=== PATIENT | female | born 1970 | race Caucasian/White ===

== ENCOUNTER 2016-10-05 13:48 | Outpatient (CLI) | payer MEDICAID, MEDICARE | END 2016-10-05 13:49 | disposition critical access hospital (66) | LOC: EMS 13:48 | PROVIDERS: ATTEND Surgery | DX: R45.851 Suicidal ideations (principal); X78.0XXA Intentional self-harm by sharp glass, initial encounter; Y92.018 Other place in single-family (private) house as the place of occurrence of the external cause | CPT/HCPCS: A0425; A0429 ==

== ENCOUNTER 2016-10-05 13:56 | Emergency (ER) | payer MEDICARE, MEDICAID ==
[2016-10-05] MEDS ORDERED: TETANUS/DIPHTHERIA/PERTUSSIS 0.5 ML SYRINGE IM ONE ×2 (15:16→15:20)
--- NOTE | 2016-10-05 15:18 | ED Physician Documentation ---
PD HPI MHE - Stated complaint Stated Complaint: SI - Chief complaint Chief Complaint: MHE - History obtained from History obtained from: Patient - History of Present Illness Primary symptom: Other (Brought in by ambulance, the patient's a difficult historian due to to psychosis/tangential. She was brought in by ambulance for evidently odd behavior. 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 - Allergies Allergies/Adverse Reactions: Allergies Allergy/AdvReac Type Severity Reaction Status Date / Time No Known Drug Allergies Allergy Verified 10/05/16 14:11 - Social History Does the pt smoke?: Yes Smoking Status: Current every day smoker Does the pt drink ETOH?: Yes Does the pt have substance abuse?: Yes PD ED PE NORMAL - Vitals Vital signs reviewed: Yes - General General: Alert and oriented X 3, No acute distress - HEENT HEENT: PERRL, EOMI - Neck Neck: Supple, no meningeal sign, No bony TTP, No bruit - Cardiac Cardiac: RRR, No murmur - Respiratory Respiratory: No respiratory distress, Clear bilaterally - Abdomen Abdomen: Soft, Non tender - Derm Derm: Normal color, Warm and dry - Extremities Extremities: No edema, No calf tenderness / cord - Neuro Neuro: Alert and oriented X 3, Normal speech - Psych Psych: Other (Significant flight of ideas, and admits to islam persecution, paranoia, delusions, auditory hallucinations.) Results - Vitals Vitals: Vital Signs - 24 hr 10/05/16 14:08 Temperature 36.5 C Heart Rate 87 Respiratory 18 Rate Blood Pressure 104/73 O2 Saturation 100 Oxygen O2 Source Room air - Labs Labs: Laboratory Tests 10/05/16 10/05/16 10/05/16 14:10 14:10 14:49 WBC RBC Hgb Hct MCV MCH MCHC RDW Plt Count MPV Neut # Lymph # [place] # Eos # Baso # Absolute Nucleated RBC Nucleated RBCs Sodium Potassium Chloride Carbon Dioxide Anion Gap BUN Creatinine Estimated GFR (MDRD) Glucose Calcium Total Bilirubin AST ALT Alkaline Phosphatase Total Protein Albumin Globulin Albumin/Globulin Ratio Lipase Urine Color YELLOW Urine Clarity CLOUDY Urine pH 5.5 Ur Specific [place] >=1.030 H Urine Protein 30 H Urine Glucose (UA) NEGATIVE Urine Ketones TRACE Urine Occult Blood SMALL H Urine Nitrite NEGATIVE Urine Bilirubin NEGATIVE Urine Urobilinogen 0.2 (NORMAL) Ur Leukocyte Esterase SMALL H Urine RBC 0-5 Urine WBC 4-5 Ur Squamous Epith Cells MOD Squamous H Urine Crystals 3-5 Calcium Oxalate Amorphous Sediment Marked Urine Bacteria Few Ur Microscopic Review INDICATED Urine Culture Comments NOT INDICATED Urine HCG, Qual NEGATIVE Urine Opiates Screen NEGATIVE Ur Oxycodone Screen NEGATIVE Urine Methadone Screen NEGATIVE Ur Propoxyphene Screen NEGATIVE Ur Barbiturates Screen NEGATIVE Ur Tricyclics Screen NEGATIVE Ur Phencyclidine Scrn NEGATIVE Ur Amphetamine Screen POSITIVE H U Methamphetamines Scrn POSITIVE H U Benzodiazepines Scrn NEGATIVE Urine Cocaine Screen NEGATIVE U Cannabinoids Screen POSITIVE H Ethyl Alcohol < 5.0 10/05/16 10/05/16 15:33 15:33 WBC 9.6 RBC 4.35 Hgb 13.3 Hct 39.3 MCV 90.5 MCH 30.6 MCHC 33.8 RDW 13.2 Plt Count 221 MPV 8.6 Neut # 7.7 H Lymph # 1.3 L [place] # 0.6 Eos # 0.0 Baso # 0.0 Absolute Nucleated RBC 0.00 Nucleated RBCs 0.0 Sodium 139 Potassium 3.7 Chloride 107 Carbon Dioxide 25 Anion Gap 7.0 BUN 11 Creatinine 0.8 Estimated GFR (MDRD) 78 L Glucose 91 Calcium 9.0 Total Bilirubin 1.0 AST 19 ALT 14 Alkaline Phosphatase 62 Total Protein 7.1 Albumin 4.1 Globulin 3.0 Albumin/Globulin Ratio 1.4 Lipase 45 Urine Color Urine Clarity Urine pH Ur Specific [place] Urine Protein Urine Glucose (UA) Urine Ketones Urine Occult Blood Urine Nitrite Urine Bilirubin Urine Urobilinogen Ur Leukocyte Esterase Urine RBC Urine WBC Ur Squamous Epith Cells Urine Crystals Amorphous Sediment Urine Bacteria Ur Microscopic Review Urine Culture Comments Urine HCG, Qual Urine Opiates Screen Ur Oxycodone Screen Urine Methadone Screen Ur Propoxyphene Screen Ur Barbiturates Screen Ur Tricyclics Screen Ur Phencyclidine Scrn Ur Amphetamine Screen U Methamphetamines Scrn U Benzodiazepines Scrn Urine Cocaine Screen U Cannabinoids Screen Ethyl Alcohol < 5.0 PD MEDICAL DECISION MAKING - ED course ED course: 45-year-old woman with paranoia with sedation some delusions related to methamphetamine abuse. Seen by social work and did not want to go to a respite bed and there is no indication for involuntary mental health treatment. Departure - Departure Disposition: 01 Home, Self Care Clinical Impression: Methamphetamine abuse Condition: Stable Record reviewed to determine appropriate education?: Yes Instructions: ED Drug Abuse General, Abuse Meth Abuse and Addiction Comments: Call your doctor to arrange a follow up appointment. Make the next available appointment. In the interim return anytime if worse or if new symptoms develop. Follow up with [facility] at for psychiatric care and counseling. Call for the next available appointment.
[2016-10-05 15:48] LABS: BASOPHILS % (AUTO) 0.4 %; EOSINOPHILS % (AUTO) 0.5 %; HCT - HEMATOCRIT 39.3 % (37.0-47.0); HGB - HEMOGLOBIN 13.3 g/dL (12.0-16.0); LYMPHOCYTES # (AUTO) 1.3 10^3/uL (1.5-3.5); LYMPHOCYTES % (AUTO) 13.3 %; MEAN CORPUSCULAR HEMOGLOBIN 30.6 pg (27.0-31.0); MEAN CORPUSCULAR HGB CONC 33.8 g/dL (32.0-36.0); MEAN CORPUSCULAR VOLUME 90.5 fL (81.0-99.0); MEAN PLATELET VOLUME 8.6 fL (7.9-10.8); MONOCYTES # (AUTO) 0.6 10^3/uL (0.0-1.0); MONOCYTES % (AUTO) 5.8 %; NEUTROPHILS # (AUTO) 7.7 10^3/uL (1.5-6.6); RED BLOOD COUNT 4.35 10^6/uL (4.20-5.40); RED CELL DISTRIBUTION WIDTH 13.2 % (12.0-15.0); UNCORRECTED WHITE BLOOD COUNT 9.6 x10^3/uL; WHITE BLOOD COUNT 9.6 x10^3/uL (4.8-10.8)
[2016-10-05 15:50] LABS: ALBUMIN/GLOBULIN RATIO 1.4 (1.0-2.2); BUN - BLOOD UREA NITROGEN 11 mg/dL (6-20); CARBON DIOXIDE - CO2 25 mmol/L (21-32); CHLORIDE 107 mmol/L (101-111); CREATININE 0.8 mg/dL (0.4-1.0); GFR - MDRD 78 (>89); GLUCOSE 91 mg/dL (70-100); LIPASE 45 U/L (22-51); POTASSIUM 3.7 mmol/L (3.5-5.0); SODIUM 139 mmol/L (135-145); TOTAL PROTEIN 7.1 g/dL (6.7-8.2)
[2016-10-05 16:23] LABS: PH,URINE 5.5 PH (5.0-7.5)
[2016-10-05 16:26] LABS: UA w/ MICROSCOPIC CHARGE YES
[2016-10-05 16:27] LABS: BILIRUBIN,URINE NEGATIVE (NEGATIVE); HCG UR QUAL NEGATIVE
[2016-10-05 16:32] LABS: UR CULTURE IF IND NOT INDICATED
[2016-10-05 17:46] VITALS: BP 100/53
== END 2016-10-05 17:55 | disposition home or self-care (01) ==
LOC: EDUNIT# → ED 13:56
DX: F15.10 Other stimulant abuse, uncomplicated (principal); F17.200 Nicotine dependence, unspecified, uncomplicated
CPT/HCPCS: 36415; 80053; 80306; 81001; 81025; 83690; 85025; 99283; G0480; 80320; 81003; 87086

== ENCOUNTER 2017-01-14 06:44 | Emergency (ER) | payer MEDICARE, MEDICAID ==
[2017-01-14 06:52] VITALS: BP 117/69
[2017-01-14] MEDS ORDERED: DEXAMETHASONE 10 MG/ML VIAL PO STA (07:21)
[2017-01-14] MEDS ORDERED: LIDOCAINE PATCH 5% TOP STA (07:21)
--- NOTE | 2017-01-14 07:24 | ED Physician Documentation ---
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 no chest pain no soa no injury no bite no rash no fever Review of Systems Cardiac: denies: Chest pain / pressure Respiratory: denies: Dyspnea GI: denies: Abdominal Pain : denies: Now EGA Musculoskeletal: reports: Extremity pain PD PAST MEDICAL HISTORY - Past Medical History Cardiovascular: None Endocrine/Autoimmune: None GI: None : None HEENT: None Psych: Depression, Anxiety Musculoskeletal: Other Derm: None Other Past Medical History: Lower back sciatica - Past Surgical History 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, 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 - Present Medications Home Medications: Ambulatory Orders Medication Instructions Recorded Confirmed Cyclobenzaprine [Flexeril] 10 mg PO TID PRN #20 tablet 01/14/17 Lidocaine Patch 5% [Lidoderm Patch] 1 each TOP DAILY PRN #10 patch 01/14/17 predniSONE [Deltasone] 20 mg PO [id number] #21 tab 01/14/17 - Allergies Allergies/Adverse Reactions: Allergies Allergy/AdvReac Type Severity Reaction Status Date / Time No Known Drug Allergies Allergy Verified 01/14/17 06:49 - Social History Does the pt smoke?: Yes Smoking Status: Current every day smoker Does the pt drink ETOH?: Yes Does the pt have substance abuse?: Yes - Immunizations Immunizations are current?: No Immunizations: TDAP >10years/unknown - POLST Patient has POLST: No PD ED PE NORMAL - Vitals Vital signs reviewed: Yes - General General: Alert and oriented X 3 - Cardiac Cardiac: RRR - Respiratory Respiratory: No respiratory distress - Abdomen Abdomen: Non tender - Extremities Extremities: Other (L FA s erythema or sig swelling, TTP and soft tissue prox FA , no rash or discoloration, pain inc with gripping, + brisk cap refill, pt describes median nerve paresthesia but sensation to media radial and ulnar distribution is normal, 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 thumbs up OK all 5/5) Results - Vitals Vitals: Vital Signs - 24 hr 01/14/17 06:49 Temperature 36.3 C L Heart Rate 96 Respiratory 18 Rate Blood Pressure 117/69 O2 Saturation 100 Oxygen O2 Source Room air PD MEDICAL DECISION MAKING - ED course ED course: seems like FA mm spasm with median nerve paresthesia no sign of infection abscess shingle cardiac etiology DVt cmpt syndrome etc will splint and tx with lido taper steroids mm relaxant Departure - Departure Disposition: 01 Home, Self Care Clinical Impression: Median nerve compression in left forearm, Muscle spasm Condition: Good Prescriptions: Cyclobenzaprine [Flexeril] 10 mg PO TID PRN #20 tablet PRN Reason: Spasms Lidocaine Patch 5% [Lidoderm Patch] 1 each TOP DAILY PRN #10 patch PRN Reason: Pain predniSONE [Deltasone] 20 mg PO [id number] #21 tab Comments: Wear the splint to prevent wrist motion which will decrease stress on your forearm muscles. The steroids will decrease nerve inflammation. The lidocaine patch (may wear up to 12 hr a day) will ease the muscle pain And the flexeril will decrease muscle spasm which will ease both the muscle and the nerve pain You can also take over the counter tylenol Ice and elevation will help too Follow up with your PMD if not better in a week Return to the ER for new or worsening symptoms Forms: Activity restrictions
[2017-01-14] MEDS ORDERED: DEXAMETHASONE 10 MG/ML VIAL ONE (07:28)
[2017-01-14] MEDS ORDERED: LIDOCAINE PATCH 5% TOP ONE (07:29)
[2017-01-14] MEDS ORDERED: CHERRY SYRUP 10 ML UDC PO ONE (07:29)
== END 2017-01-14 07:46 | disposition home or self-care (01) ==
LOC: ED 06:44
DX: G56.02 Carpal tunnel syndrome, left upper limb (principal); F17.200 Nicotine dependence, unspecified, uncomplicated
CPT/HCPCS: 29125; 99283; A9270

== ENCOUNTER 2017-05-12 11:42 | Emergency (ER) | payer MEDICARE, MEDICAID ==
[2017-05-12 12:56] LABS: BASOPHILS % (AUTO) 0.6 %; EOSINOPHILS # (AUTO) 0.1 10^3/uL (0.0-0.7); EOSINOPHILS % (AUTO) 0.8 %; HGB - HEMOGLOBIN 13.8 g/dL (12.0-16.0); LYMPHOCYTES # (AUTO) 1.4 10^3/uL (1.5-3.5); LYMPHOCYTES % (AUTO) 20.9 %; MEAN CORPUSCULAR HEMOGLOBIN 30.5 pg (27.0-31.0); MEAN CORPUSCULAR HGB CONC 33.8 g/dL (32.0-36.0); MEAN CORPUSCULAR VOLUME 90.1 fL (81.0-99.0); MEAN PLATELET VOLUME 8.7 fL (7.9-10.8); MONOCYTES # (AUTO) 0.4 10^3/uL (0.0-1.0); MONOCYTES % (AUTO) 6.2 %; NEUTROPHILS # (AUTO) 4.8 10^3/uL (1.5-6.6); NEUTROPHILS % (AUTO) 71.5 %; PLT - PLATELET COUNT 239 10^3/uL (130-450); RED BLOOD COUNT 4.54 10^6/uL (4.20-5.40); RED CELL DISTRIBUTION WIDTH 12.8 % (12.0-15.0); WHITE BLOOD COUNT 6.7 x10^3/uL (4.8-10.8)
--- NOTE | 2017-05-12 13:07 | ED Physician Documentation ---
History of Present Illness - Stated complaint Stated Complaint: MHE - Chief complaint Chief Complaint: MHE - History obtained from History obtained from: Patient (pt states that she is here because "those ass hole bikers attached my vagina to a slot machine so that everytime they use it, it causes me pain." she stated that she feels like there is something crawling around in her vagina. she also made coments about going to take herion to kill herself.) Review of Systems Unable to obtain: Other (delusional) Constitutional: denies: Fever, Chills Cardiac: denies: Chest pain / pressure Respiratory: denies: Dyspnea, Cough GI: reports: Abdominal Pain. denies: Nausea, Vomiting, Constipation, Diarrhea : reports: Other (something crawling around in her vagina). 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 - Present Medications Home Medications: Ambulatory Orders Medication Instructions Recorded Confirmed No Known Home Medications [No 05/12/17 05/12/17 Known Home Medications] - Allergies Allergies/Adverse Reactions: Allergies Allergy/AdvReac Type Severity Reaction Status Date / Time No Known Drug Allergies Allergy Verified 05/12/17 17:30 - Social History Does the pt smoke?: Yes Smoking Status: Current every day smoker Does the pt drink ETOH?: Yes Does the pt have substance abuse?: Yes - Immunizations Immunizations are current?: No Immunizations: TDAP >10years/unknown - POLST Patient has POLST: No PD ED PE NORMAL - Vitals Vital signs reviewed: Yes - General General: Well developed/nourished. 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 No: Withdrawn, Non verbal Results - Vitals Vitals: Vital Signs - 24 hr 05/12/17 11:47 Temperature 36.3 C L Heart Rate 94 Respiratory 20 Rate O2 Saturation 100 Oxygen O2 Source Room air - Labs Labs: Microbiology 05/12/17 13:20 Wet Prep - Final Genital - Vaginal 05/12/17 13:20 ANDREWS Preparation - Final Fluid - Vaginal Laboratory Tests 05/12/17 05/12/17 05/12/17 12:42 12:42 13:20 WBC 6.7 RBC 4.54 Hgb 13.8 Hct 40.8 MCV 90.1 MCH 30.5 MCHC 33.8 RDW 12.8 Plt Count 239 MPV 8.7 Neut # 4.8 Lymph # 1.4 L [place] # 0.4 Eos # 0.1 Baso # 0.0 Absolute Nucleated RBC 0.00 Nucleated RBC % 0.0 Sodium 136 Potassium 3.5 Chloride 100 L Carbon Dioxide 24 Anion Gap 12.0 BUN 7 Creatinine 0.7 Estimated GFR (MDRD) 90 Glucose 110 H Calcium 8.9 Total Bilirubin 0.7 AST 47 H ALT 24 Alkaline Phosphatase 68 Total Protein 7.1 Albumin 4.1 Globulin 3.0 Albumin/Globulin Ratio 1.4 Lipase 33 Urine Color YELLOW Urine Clarity CLEAR Urine pH 6.5 Ur Specific [place] 1.020 Urine Protein NEGATIVE Urine Glucose (UA) NEGATIVE Urine Ketones NEGATIVE Urine Occult Blood NEGATIVE Urine Nitrite NEGATIVE Urine Bilirubin NEGATIVE Urine Urobilinogen 0.2 (NORMAL) Ur Leukocyte Esterase SMALL H Urine RBC 0-5 Urine WBC 6-10 H Urine WBC Clumps PRESENT Ur Squamous Epith Cells FEW Squamous Urine Bacteria Few Urine Mucus Few Strands Urine Trichomonas PRESENT H Ur Microscopic Review INDICATED Urine Culture Comments INDICATED Urine HCG, Qual Salicylates < 6.0 Urine Opiates Screen NEGATIVE Ur Oxycodone Screen NEGATIVE Urine Methadone Screen NEGATIVE Ur Propoxyphene Screen NEGATIVE Acetaminophen < 10 L Ur Barbiturates Screen NEGATIVE Ur Tricyclics Screen NEGATIVE Ur Phencyclidine Scrn NEGATIVE Ur Amphetamine Screen POSITIVE H U Methamphetamines Scrn POSITIVE H U Benzodiazepines Scrn NEGATIVE Urine Cocaine Screen NEGATIVE U Cannabinoids Screen POSITIVE H Ethyl Alcohol < 5.0 05/12/17 13:35 WBC RBC Hgb Hct MCV MCH MCHC RDW Plt Count MPV Neut # Lymph # [place] # Eos # Baso # Absolute Nucleated RBC Nucleated RBC % Sodium Potassium Chloride Carbon Dioxide Anion Gap BUN Creatinine Estimated GFR (MDRD) Glucose Calcium Total Bilirubin AST ALT Alkaline Phosphatase Total Protein Albumin Globulin Albumin/Globulin Ratio Lipase Urine Color Urine Clarity Urine pH Ur Specific [place] 1.020 Urine Protein Urine Glucose (UA) Urine Ketones Urine Occult Blood Urine Nitrite Urine Bilirubin Urine Urobilinogen Ur Leukocyte Esterase Urine RBC Urine WBC Urine WBC Clumps Ur Squamous Epith Cells Urine Bacteria Urine Mucus Urine Trichomonas Ur Microscopic Review Urine Culture Comments Urine HCG, Qual NEGATIVE Salicylates Urine Opiates Screen Ur Oxycodone Screen Urine Methadone Screen Ur Propoxyphene Screen Acetaminophen Ur Barbiturates Screen Ur Tricyclics Screen Ur Phencyclidine Scrn Ur Amphetamine Screen U Methamphetamines Scrn U Benzodiazepines Scrn Urine Cocaine Screen U Cannabinoids Screen Ethyl Alcohol PD MEDICAL DECISION MAKING - ED course Complexity details: reviewed results, considered differential ED course: Pt with delusions. she denied any drug or ETOh use in the past 24 hours. She has PE C/W genital HSV. no FB seen in the vagina. Pt stated that when I removed the speculum I took out whatever she felt in her vagina. I was informed that she was unable to leave because of my concerns for her mental stability. she did end up running out of the ER. no treatment was administered. Police were called. Departure - Departure Disposition: ED [place] Clinical Impression: Delusions, Substance abuse, Genital herpes Discharge Date/Time: 05/12/17 16:12
[2017-05-12 13:13] LABS: ALBUMIN 4.1 g/dL (3.2-5.5); ALBUMIN/GLOBULIN RATIO 1.4 (1.0-2.2); ALKALINE PHOSPHATASE 68 IU/L (42-121); ALT ALANINE AMINOTRANSFERASE 24 IU/L (10-60); AST ASPARTATE AMINOTRANSFERASE 47 IU/L (10-42); BILIRUBIN,TOTAL 0.7 mg/dL (0.2-1.0); BUN - BLOOD UREA NITROGEN 7 mg/dL (6-20); CALCIUM 8.9 mg/dL (8.5-10.3); CARBON DIOXIDE - CO2 24 mmol/L (21-32); CHLORIDE 100 mmol/L (101-111); CREATININE 0.7 mg/dL (0.4-1.0); GFR - MDRD 90 (>89); GLUCOSE 110 mg/dL (70-100); LIPASE 33 U/L (22-51); SALICYLATE < 6.0 mg/dL; SODIUM 136 mmol/L (135-145); TOTAL PROTEIN 7.1 g/dL (6.7-8.2)
[2017-05-12 13:16] LABS: ACETAMINOPHEN < 10 ug/mL (10-30)
[2017-05-12 13:43] LABS: MUDS CUTOFF CONCENTRATIONS CUTOFF CONC BELOW:
[2017-05-12 13:45] LABS: BILIRUBIN,URINE NEGATIVE (NEGATIVE); GLUCOSE, URINE (UA) NEGATIVE (NEGATIVE); KETONES,URINE (UA) NEGATIVE (NEGATIVE); LEUKOCYTE ESTERASE, URINE SMALL (NEGATIVE); NITRITE,URINE NEGATIVE (NEGATIVE); OCCULT BLOOD,URINE NEGATIVE (NEGATIVE); PH,URINE 6.5 PH (5.0-7.5); PROTEIN,URINE NEGATIVE (NEGATIVE); UROBILINOGEN,URINE 0.2 (NORMAL) E.U./dL (NORMAL)
[2017-05-12 13:51] LABS: CLARITY,URINE CLEAR (CLEAR)
[2017-05-12 13:59] LABS: HCG UR QUAL NEGATIVE
[2017-05-12 14:04] LABS: RBC,URINE 0-5 /HPF (0-5); SQUAMOUS EPITHELIAL CELL,UR FEW Squamous (<= Few); WBC CLUMPS,URINE PRESENT
[2017-05-12 14:05] LABS: BACTERIA,URINE Few /HPF (None Seen); MUCUS,URINE Few Strands; TRICHOMONAS,URINE PRESENT (None Seen)
[2017-05-12 14:06] LABS: AMPHETAMINE SCREEN,URINE POSITIVE (NEGATIVE); BENZODIAZEPINES SCREEN, URINE NEGATIVE (NEGATIVE); COCAINE SCREEN URINE NEGATIVE (NEGATIVE); METHADONE SCREEN, URINE NEGATIVE (NEGATIVE); METHAMPHETAMINES SCREEN, URINE POSITIVE (NEGATIVE); OPIATE SCREEN, URINE NEGATIVE (NEGATIVE); OXYCODONE SCREEN, URINE NEGATIVE (NEGATIVE); PROPOXYPHENE SCREEN, URINE NEGATIVE (NEGATIVE); TRICYCLIC ANTIDEPRESSANT,URINE NEGATIVE (NEGATIVE)
== END 2017-05-12 16:12 | disposition left against medical advice (07) ==
LOC: ED 11:42
DX: F22 Delusional disorders (principal); F19.10 Other psychoactive substance abuse, uncomplicated; A60.00 Herpesviral infection of urogenital system, unspecified; F17.200 Nicotine dependence, unspecified, uncomplicated
CPT/HCPCS: 36415; 80053; 80306; 80307; 80320; 80329; 81001; 81003; 81025; 83690; 85025; 87086; 87210; 87220; 87491; 87591; 99283; 99284

== ENCOUNTER 2017-05-12 16:30 | Emergency (ER) | payer MEDICARE, MEDICAID ==
[2017-05-12 16:37] VITALS: BP 144/94
[2017-05-12 17:15] LABS: SALICYLATE < 6.0 mg/dL
[2017-05-12 17:16] LABS: ACETAMINOPHEN < 10 ug/mL (10-30)
[2017-05-12] MEDS ORDERED: metroNIDAZOLE 250 MG TABLET PO STA (22:00)
[2017-05-12] MEDS ORDERED: cefTRIAXone 1 GM VIAL IM STA (22:00)
[2017-05-12] MEDS ORDERED: AZITHROMYCIN 250 MG TABLET PO STA (22:00)
--- NOTE | 2017-05-12 22:06 | ED Physician Documentation ---
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 - Present Medications Home Medications: Ambulatory Orders Medication Instructions Recorded Confirmed Acyclovir 400 mg PO Q8HR #30 tablet 05/12/17 - Allergies Allergies/Adverse Reactions: Allergies Allergy/AdvReac Type Severity Reaction Status Date / Time No Known Drug Allergies Allergy Verified 05/12/17 17:30 - Social History Does the pt smoke?: Yes Smoking Status: Current every day smoker Does the pt drink ETOH?: Yes Does the pt have substance abuse?: Yes - Immunizations Immunizations are current?: No Immunizations: TDAP >10years/unknown - POLST Patient has POLST: No PD ED PE NORMAL - Vitals Vital signs reviewed: Yes - General General: No acute distress - Respiratory Respiratory: No respiratory distress - Abdomen Abdomen: Soft, Non tender - Derm Derm: Normal color, No rash PD ED PE EXPANDED - Psych Psych: Agitated, Pressured speech, Flight of ideas Results - Vitals Vitals: Vital Signs - 24 hr 05/12/17 16:31 Temperature 36.7 C Heart Rate 96 Respiratory 20 Rate Blood Pressure 144/94 H O2 Saturation 98 Oxygen O2 Source Room air - Labs Labs: Laboratory Tests 05/12/17 16:56 Salicylates < 6.0 Acetaminophen < 10 L Ethyl Alcohol < 5.0 PD MEDICAL DECISION MAKING - ED course Complexity details: reviewed results, considered differential, d/w patient ED course: pt was evaluated by DM who states that she does not meet criteria for inpatient admission. Pt was A7O ut still is concerned about something in her vagina. We discussed her physical exam results and that her findings are C/W HSV. I also informed her of her Tric positive lab. We also discussed treating her for GC/CT because of the other findings and she said yes. i did tell her that I was not positive that she had these infections but she was at risk because of the other findings. She has a follow up tomorrow at 10AM at [facility] where she has been in the past. she expressed understanding of that appointment. Departure - Departure Disposition: 01 Home, Self Care Clinical Impression: Trichomonal infection, Genital herpes Condition: Good Instructions: Addiction Drug Abuse Tx, STD Follow-Up: primary,care provider [Other] Prescriptions: Acyclovir 400 mg PO Q8HR #30 tablet Comments: You have a follow up with [facility] tomorrow at 10AM. you were treated today for your trichomonas and for presumed gonorrhea and chlamydia. take the medication as directed. Recommend that you do not use drugs. No driving for the next 24 hours or while you are using. Return to the ER for any new or worsening symptoms.
[2017-05-12] MEDS ORDERED: LIDOCAINE 1% 2 ML VIAL ONE (22:13)
[2017-05-12] MEDS ORDERED: cefTRIAXone 250 MG VIAL ONE (22:13)
== END 2017-05-12 22:20 | disposition home or self-care (01) ==
LOC: ED 16:30
DX: A59.9 Trichomoniasis, unspecified (principal); A60.00 Herpesviral infection of urogenital system, unspecified; F22 Delusional disorders; F19.10 Other psychoactive substance abuse, uncomplicated; F17.200 Nicotine dependence, unspecified, uncomplicated
CPT/HCPCS: 36415; 80053; 80306; 80307; 81001; 81025; 83690; 85025; 87086; 87210; 87220; 87491; 87591; 96372; 99283; 99284; A9270; G0480; 80320; 80329; 81003

== ENCOUNTER 2017-08-17 15:48 | Emergency (ER) | payer MEDICARE, MEDICAID, OTHER ==
--- NOTE | 2017-08-17 16:02 | ED Physician Documentation ---
PD HPI MHE - Stated complaint Stated Complaint: MHE - Chief complaint Chief Complaint: MHE - History obtained from History obtained from: Patient, Police - History of Present Illness Primary symptom: Other (46-year-old woman presents accompanied by police because of odd and belligerent behavior. She is very paranoid. She is going on about gangs and bikers. She admits to using methamphetamines yesterday. She understands she is paranoid, but she does not think it is from the methamphetamines. 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 - Present Medications Home Medications: Ambulatory Orders Medication Instructions Recorded Confirmed Acyclovir 400 mg PO Q8HR #30 tablet 05/12/17 - Allergies Allergies/Adverse Reactions: Allergies Allergy/AdvReac Type Severity Reaction Status Date / Time No Known Drug Allergies Allergy Verified 05/12/17 17:30 - Social History Does the pt smoke?: Yes Smoking Status: Current every day smoker Does the pt drink ETOH?: Yes Does the pt have substance abuse?: Yes - Family History Family history: reports: Non contributory - Immunizations Immunizations are current?: No Immunizations: TDAP >10years/unknown - POLST Patient has POLST: No PD ED PE NORMAL - Vitals Vital signs reviewed: Yes (Tachycardic, hypertensive) - General General: Alert and oriented X 3, Other (Hypervigilant with pressured speech and paranoid) - HEENT HEENT: PERRL, EOMI - Neck Neck: Supple, no meningeal sign, No bony TTP - Cardiac Cardiac: RRR, No murmur - Respiratory Respiratory: No respiratory distress, Clear bilaterally - Abdomen Abdomen: Normal bowel sounds, Soft, Non tender - Back Back: No CVA TTP, No spinal TTP - Derm Derm: Normal color, Warm and dry - Extremities Extremities: No edema, No calf tenderness / cord - Neuro Neuro: Alert and oriented X 3, Normal speech Results - Vitals Vitals: Vital Signs - 24 hr 08/17/17 08/17/17 15:54 22:16 Temperature 37.2 C Heart Rate 110 H 89 Respiratory 22 12 Rate Blood Pressure 154/91 H 106/57 L O2 Saturation 100 99 Oxygen O2 Source Room air - Labs Labs: Laboratory Tests 08/17/17 08/17/17 08/17/17 16:18 16:18 17:29 WBC 7.3 RBC 4.42 Hgb 13.4 Hct 40.0 MCV 90.4 MCH 30.3 MCHC 33.5 RDW 12.6 Plt Count 226 MPV 8.3 Neut # 5.5 Lymph # 1.3 L [place] # 0.4 Eos # 0.1 Baso # 0.0 Absolute Nucleated RBC 0.00 Nucleated RBC % 0.0 Sodium 140 Potassium 3.7 Chloride 107 Carbon Dioxide 25 Anion Gap 8.0 BUN 11 Creatinine 0.9 Estimated GFR (MDRD) 68 L Glucose 113 H Calcium 8.9 Total Bilirubin 0.6 AST 17 ALT 12 Alkaline Phosphatase 68 Total Protein 6.8 Albumin 3.9 Globulin 2.9 Albumin/Globulin Ratio 1.3 Lipase 36 Urine Color YELLOW Urine Clarity CLOUDY Urine pH 6.5 Ur Specific [place] 1.025 Urine Protein NEGATIVE Urine Glucose (UA) NEGATIVE Urine Ketones TRACE Urine Occult Blood LARGE H Urine Nitrite NEGATIVE Urine Bilirubin NEGATIVE Urine Urobilinogen 0.2 (NORMAL) Ur Leukocyte Esterase TRACE H Urine RBC TNTC H Urine WBC 4-5 Ur Squamous Epith Cells MOD Squamous H Urine Bacteria Few Ur Microscopic Review INDICATED Urine Culture Comments NOT INDICATED Urine HCG, Qual NEGATIVE Salicylates < 6.0 Urine Opiates Screen NEGATIVE Ur Oxycodone Screen NEGATIVE Urine Methadone Screen NEGATIVE Ur Propoxyphene Screen NEGATIVE Acetaminophen < 10 L Ur Barbiturates Screen NEGATIVE Ur Tricyclics Screen NEGATIVE Ur Phencyclidine Scrn NEGATIVE Ur Amphetamine Screen POSITIVE H U Methamphetamines Scrn POSITIVE H U Benzodiazepines Scrn NEGATIVE Urine Cocaine Screen NEGATIVE U Cannabinoids Screen NEGATIVE Ethyl Alcohol < 5.0 PD MEDICAL DECISION MAKING - ED course ED course: 46-year-old woman who is paranoid brought in by police for mental health evaluation, she has been using methamphetamines which is probably the cause of her paranoia. She calm down on the emergency department which was aided by some Lorazepam. Seen by the [facility] who released her for outpatient treatment and gave her resources to help with her drug use. Departure - Departure Disposition: 01 Home, Self Care Clinical Impression: Methamphetamine abuse, Delusions Condition: Good Record reviewed to determine appropriate education?: Yes Instructions: ED Drug Abuse General Comments: Use the resources given to you by the designated crisis responder to help obtain drug treatment. Return if worse or if new symptoms develop.
[2017-08-17] MEDS ORDERED: LORazepam 0.5 MG TABLET PO STA (16:32)
[2017-08-17 16:34] LABS: BASOPHILS % (AUTO) 0.4 %; EOSINOPHILS # (AUTO) 0.1 10^3/uL (0.0-0.7); HGB - HEMOGLOBIN 13.4 g/dL (12.0-16.0); LYMPHOCYTES # (AUTO) 1.3 10^3/uL (1.5-3.5); LYMPHOCYTES % (AUTO) 17.5 %; MEAN CORPUSCULAR HEMOGLOBIN 30.3 pg (27.0-31.0); MEAN CORPUSCULAR HGB CONC 33.5 g/dL (32.0-36.0); MEAN CORPUSCULAR VOLUME 90.4 fL (81.0-99.0); MEAN PLATELET VOLUME 8.3 fL (7.9-10.8); MONOCYTES # (AUTO) 0.4 10^3/uL (0.0-1.0); MONOCYTES % (AUTO) 5.9 %; NEUTROPHILS # (AUTO) 5.5 10^3/uL (1.5-6.6); NEUTROPHILS % (AUTO) 75.2 %; PLT - PLATELET COUNT 226 10^3/uL (130-450); RED BLOOD COUNT 4.42 10^6/uL (4.20-5.40); RED CELL DISTRIBUTION WIDTH 12.6 % (12.0-15.0); WHITE BLOOD COUNT 7.3 x10^3/uL (4.8-10.8)
[2017-08-17 16:41] LABS: ACETAMINOPHEN < 10 ug/mL (10-30); ALBUMIN 3.9 g/dL (3.2-5.5); ALBUMIN/GLOBULIN RATIO 1.3 (1.0-2.2); ALKALINE PHOSPHATASE 68 IU/L (42-121); ALT ALANINE AMINOTRANSFERASE 12 IU/L (10-60); AST ASPARTATE AMINOTRANSFERASE 17 IU/L (10-42); BILIRUBIN,TOTAL 0.6 mg/dL (0.2-1.0); BUN - BLOOD UREA NITROGEN 11 mg/dL (6-20); CALCIUM 8.9 mg/dL (8.5-10.3); CARBON DIOXIDE - CO2 25 mmol/L (21-32); CHLORIDE 107 mmol/L (101-111); CREATININE 0.9 mg/dL (0.4-1.0); GFR - MDRD 68 (>89); GLUCOSE 113 mg/dL (70-100); LIPASE 36 U/L (22-51); SALICYLATE < 6.0 mg/dL; SODIUM 140 mmol/L (135-145); TOTAL PROTEIN 6.8 g/dL (6.7-8.2)
[2017-08-17 17:35] LABS: MUDS CUTOFF CONCENTRATIONS CUTOFF CONC BELOW:
[2017-08-17 17:37] LABS: BILIRUBIN,URINE NEGATIVE (NEGATIVE); GLUCOSE, URINE (UA) NEGATIVE (NEGATIVE); KETONES,URINE (UA) TRACE mg/dL (NEGATIVE); LEUKOCYTE ESTERASE, URINE TRACE (NEGATIVE); NITRITE,URINE NEGATIVE (NEGATIVE); OCCULT BLOOD,URINE LARGE (NEGATIVE); PH,URINE 6.5 PH (5.0-7.5); PROTEIN,URINE NEGATIVE (NEGATIVE); UROBILINOGEN,URINE 0.2 (NORMAL) E.U./dL (NORMAL)
[2017-08-17 17:40] LABS: CLARITY,URINE CLOUDY (CLEAR); HCG UR QUAL NEGATIVE
[2017-08-17 17:52] LABS: AMPHETAMINE SCREEN,URINE POSITIVE (NEGATIVE); BENZODIAZEPINES SCREEN, URINE NEGATIVE (NEGATIVE); COCAINE SCREEN URINE NEGATIVE (NEGATIVE); METHADONE SCREEN, URINE NEGATIVE (NEGATIVE); METHAMPHETAMINES SCREEN, URINE POSITIVE (NEGATIVE); OPIATE SCREEN, URINE NEGATIVE (NEGATIVE); OXYCODONE SCREEN, URINE NEGATIVE (NEGATIVE); PROPOXYPHENE SCREEN, URINE NEGATIVE (NEGATIVE); TRICYCLIC ANTIDEPRESSANT,URINE NEGATIVE (NEGATIVE)
[2017-08-17 18:12] LABS: BACTERIA,URINE Few /HPF (None Seen); RBC,URINE TNTC /HPF (0-5); SQUAMOUS EPITHELIAL CELL,UR MOD Squamous (<= Few)
[2017-08-17 22:17] VITALS: BP 106/57
== END 2017-08-17 22:55 | disposition home or self-care (01) ==
LOC: ED 15:48
DX: F15.10 Other stimulant abuse, uncomplicated (principal); F22 Delusional disorders; F17.200 Nicotine dependence, unspecified, uncomplicated
CPT/HCPCS: 36415; 80053; 80306; 80307; 80320; 80329; 81001; 81003; 81025; 83690; 85025; 87086; 99283; 99284

== ENCOUNTER 2018-05-11 16:14 | Emergency (ER) | payer MEDICARE, MEDICAID ==
[2018-05-11 16:47] LABS: BASOPHILS % (AUTO) 0.3 %; EOSINOPHILS # (AUTO) 0.1 10^3/uL (0.0-0.7); EOSINOPHILS % (AUTO) 0.9 %; HGB - HEMOGLOBIN 13.8 g/dL (12.0-16.0); LYMPHOCYTES # (AUTO) 1.8 10^3/uL (1.5-3.5); LYMPHOCYTES % (AUTO) 20.8 %; MEAN CORPUSCULAR HEMOGLOBIN 30.7 pg (27.0-31.0); MEAN CORPUSCULAR HGB CONC 33.3 g/dL (32.0-36.0); MEAN CORPUSCULAR VOLUME 92.1 fL (81.0-99.0); MEAN PLATELET VOLUME 8.3 fL (7.9-10.8); MONOCYTES # (AUTO) 0.7 10^3/uL (0.0-1.0); MONOCYTES % (AUTO) 7.7 %; NEUTROPHILS # (AUTO) 5.9 10^3/uL (1.5-6.6); NEUTROPHILS % (AUTO) 70.3 %; PLT - PLATELET COUNT 249 10^3/uL (130-450); RED BLOOD COUNT 4.49 10^6/uL (4.20-5.40); RED CELL DISTRIBUTION WIDTH 13.1 % (12.0-15.0); WHITE BLOOD COUNT 8.5 x10^3/uL (4.8-10.8)
[2018-05-11] MEDS ORDERED: LORazepam 0.5 MG TABLET PO STA (16:53)
--- NOTE | 2018-05-11 16:54 | ED Physician Documentation ---
PD HPI MHE - Stated complaint Stated Complaint: MHE - Chief complaint Chief Complaint: MHE - History obtained from History obtained from: Patient - History of Present Illness Primary symptom: Anxiety (47-year-old woman with long-standing anxiety and depression has been going downhill for a long time and feels very lonely. She got worse over the last couple of days because she smokes methamphetamines. 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 - Present Medications Home Medications: Ambulatory Orders Medication Instructions Recorded Confirmed No Known Home Medications 05/11/18 05/11/18 - Allergies Allergies/Adverse Reactions: Allergies Allergy/AdvReac Type Severity Reaction Status Date / Time No Known Drug Allergies Allergy Verified 05/11/18 16:21 - Social History Does the pt smoke?: Yes Smoking Status: Current every day smoker Does the pt drink ETOH?: Yes Does the pt have substance abuse?: Yes - Family History Family history: reports: Non contributory - Immunizations Immunizations are current?: No Immunizations: TDAP >10years/unknown - POLST Patient has POLST: No PD ED PE NORMAL - Vitals Vital signs reviewed: Yes - General General: Alert and oriented X 3, Other (Anxious tearful and hypervigilant) - HEENT HEENT: PERRL, EOMI - Neck Neck: Supple, no meningeal sign, No bony TTP - Cardiac Cardiac: RRR, No murmur - Respiratory Respiratory: No respiratory distress, Clear bilaterally - Abdomen Abdomen: Normal bowel sounds, Soft, Non tender - Back Back: No CVA TTP, No spinal TTP - Derm Derm: Normal color, Warm and dry - Extremities Extremities: No edema, No calf tenderness / cord - Neuro Neuro: Alert and oriented X 3, Normal speech Eye Opening: Spontaneous Motor: Obeys Commands Verbal: Oriented GCS Score: 15 - Psych Psych: Normal mood, Normal affect Results - Vitals Vitals: Vital Signs - 24 hr 05/11/18 05/12/18 05/12/18 16:18 01:00 10:11 Temperature 37.2 C Heart Rate 97 57 L 68 Respiratory 22 15 18 Rate Blood Pressure 129/61 103/61 101/61 O2 Saturation 99 97 99 Oxygen O2 Source Room air - Labs Labs: Microbiology 05/11/18 17:58 Urine Culture - Preliminary Urine,Clean Catch CULTURE IN PROGRESS. RESULTS TO FOLLOW. Laboratory Tests 05/11/18 05/11/18 05/11/18 16:40 16:40 16:40 WBC 8.5 RBC 4.49 Hgb 13.8 Hct 41.4 MCV 92.1 MCH 30.7 MCHC 33.3 RDW 13.1 Plt Count 249 MPV 8.3 Neut # (Auto) 5.9 Lymph # (Auto) 1.8 [place] # (Auto) 0.7 Eos # (Auto) 0.1 Baso # (Auto) 0.0 Absolute Nucleated RBC 0.00 Nucleated RBC % 0.0 Sodium 134 L Potassium 3.9 Chloride 105 Carbon Dioxide 21 Anion Gap 8.0 BUN 9 Creatinine 0.7 Estimated GFR (MDRD) 90 Glucose 92 Calcium 8.7 Total Bilirubin 0.9 AST 20 ALT 13 Alkaline Phosphatase 68 Total Protein 7.2 Albumin 4.1 Globulin 3.1 Albumin/Globulin Ratio 1.3 Lipase 45 TSH 2.44 Urine Color Urine Clarity Urine pH Ur Specific [place] Urine Protein Urine Glucose (UA) Urine Ketones Urine Occult Blood Urine Nitrite Urine Bilirubin Urine Urobilinogen Ur Leukocyte Esterase Urine RBC Urine WBC Ur Squamous Epith Cells Urine Bacteria Ur Microscopic Review Urine Culture Comments Urine HCG, Qual Salicylates < 6.0 Urine Opiates Screen Ur Oxycodone Screen Urine Methadone Screen Ur Propoxyphene Screen Acetaminophen < 10 L Ur Barbiturates Screen Ur Tricyclics Screen Ur Phencyclidine Scrn Ur Amphetamine Screen U Methamphetamines Scrn U Benzodiazepines Scrn Urine Cocaine Screen U Cannabinoids Screen Ethyl Alcohol < 5.0 05/11/18 17:58 WBC RBC Hgb Hct MCV MCH MCHC RDW Plt Count MPV Neut # (Auto) Lymph # (Auto) [place] # (Auto) Eos # (Auto) Baso # (Auto) Absolute Nucleated RBC Nucleated RBC % Sodium Potassium Chloride Carbon Dioxide Anion Gap BUN Creatinine Estimated GFR (MDRD) Glucose Calcium Total Bilirubin AST ALT Alkaline Phosphatase Total Protein Albumin Globulin Albumin/Globulin Ratio Lipase TSH Urine Color YELLOW Urine Clarity CLOUDY Urine pH 5.0 Ur Specific [place] >=1.030 H Urine Protein NEGATIVE Urine Glucose (UA) NEGATIVE Urine Ketones >=80 H Urine Occult Blood TRACE-INTA Urine Nitrite NEGATIVE Urine Bilirubin NEGATIVE Urine Urobilinogen 0.2 (NORMAL) Ur Leukocyte Esterase MODERATE H Urine RBC 6-10 H Urine WBC 6-10 H Ur Squamous Epith Cells FEW Squamous Urine Bacteria None Seen Ur Microscopic Review INDICATED Urine Culture Comments INDICATED Urine HCG, Qual NEGATIVE Salicylates Urine Opiates Screen NEGATIVE Ur Oxycodone Screen NEGATIVE Urine Methadone Screen NEGATIVE Ur Propoxyphene Screen NEGATIVE Acetaminophen Ur Barbiturates Screen NEGATIVE Ur Tricyclics Screen NEGATIVE Ur Phencyclidine Scrn NEGATIVE Ur Amphetamine Screen POSITIVE H U Methamphetamines Scrn POSITIVE H U Benzodiazepines Scrn NEGATIVE Urine Cocaine Screen NEGATIVE U Cannabinoids Screen POSITIVE H Ethyl Alcohol PD MEDICAL DECISION MAKING - ED course ED course: This is a 47-year-old woman who presents with basically a mental breakdown exacerbated by methamphetamine use and she would like to pursue voluntary hospitalization. She arrived basically just as social work was leaving the building for the day, tele-psychiatry consultation was done and agreed with voluntary hospitalization. Departure - Departure Disposition: 65 Psych Hosp/Unit DC/Xfer Clinical Impression: Methamphetamine abuse, PTSD (post-traumatic stress disorder) Depression Qualifiers: Depression Type: major depressive disorder Major depression recurrence: recurrent Active/Remission status: currently active Major depression episode severity: severe Psychotic features: without psychotic features Qualified Code(s): F33.2 - Major depressive disorder, recurrent severe without psychotic features
[2018-05-11 17:04] LABS: ACETAMINOPHEN < 10 ug/mL (10-30); ALBUMIN 4.1 g/dL (3.2-5.5); ALBUMIN/GLOBULIN RATIO 1.3 (1.0-2.2); ALKALINE PHOSPHATASE 68 IU/L (42-121); ALT ALANINE AMINOTRANSFERASE 13 IU/L (10-60); AST ASPARTATE AMINOTRANSFERASE 20 IU/L (10-42); BILIRUBIN,TOTAL 0.9 mg/dL (0.2-1.0); BUN - BLOOD UREA NITROGEN 9 mg/dL (6-20); CALCIUM 8.7 mg/dL (8.5-10.3); CARBON DIOXIDE - CO2 21 mmol/L (21-32); CHLORIDE 105 mmol/L (101-111); CREATININE 0.7 mg/dL (0.4-1.0); GFR - MDRD 90 (>89); GLUCOSE 92 mg/dL (70-100); LIPASE 45 U/L (22-51); SALICYLATE < 6.0 mg/dL; SODIUM 134 mmol/L (135-145); TOTAL PROTEIN 7.2 g/dL (6.7-8.2)
[2018-05-11] MEDS ORDERED: OLANZapine ODT 5 MG TABLET TL STA (17:28)
[2018-05-11 18:03] LABS: MUDS CUTOFF CONCENTRATIONS CUTOFF CONC BELOW:
[2018-05-11 18:10] LABS: GLUCOSE, URINE (UA) NEGATIVE (NEGATIVE); KETONES,URINE (UA) >=80 mg/dL (NEGATIVE); LEUKOCYTE ESTERASE, URINE MODERATE (NEGATIVE); NITRITE,URINE NEGATIVE (NEGATIVE); OCCULT BLOOD,URINE TRACE-INTA (NEGATIVE); PROTEIN,URINE NEGATIVE (NEGATIVE); UROBILINOGEN,URINE 0.2 (NORMAL) E.U./dL (NORMAL)
[2018-05-11 18:20] LABS: BILIRUBIN,URINE NEGATIVE (NEGATIVE); CLARITY,URINE CLOUDY (CLEAR); HCG UR QUAL NEGATIVE; ICTOTEST,URINE NEGATIVE
[2018-05-11 18:22] LABS: AMPHETAMINE SCREEN,URINE POSITIVE (NEGATIVE); BENZODIAZEPINES SCREEN, URINE NEGATIVE (NEGATIVE); COCAINE SCREEN URINE NEGATIVE (NEGATIVE); METHADONE SCREEN, URINE NEGATIVE (NEGATIVE); METHAMPHETAMINES SCREEN, URINE POSITIVE (NEGATIVE); OPIATE SCREEN, URINE NEGATIVE (NEGATIVE); OXYCODONE SCREEN, URINE NEGATIVE (NEGATIVE); PROPOXYPHENE SCREEN, URINE NEGATIVE (NEGATIVE); TRICYCLIC ANTIDEPRESSANT,URINE NEGATIVE (NEGATIVE)
[2018-05-11 18:37] LABS: BACTERIA,URINE None Seen /HPF (None Seen); SQUAMOUS EPITHELIAL CELL,UR FEW Squamous (<= Few)
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
[2018-05-12 23:45] VITALS: BP 100/58
== END 2018-05-13 00:10 ==
LOC: ED 16:14
DX: F33.2 Major depressive disorder, recurrent severe without psychotic features (principal); F15.10 Other stimulant abuse, uncomplicated; F43.10 Post-traumatic stress disorder, unspecified; Z62.819 Personal history of unspecified abuse in childhood; R45.850 Homicidal ideations; R45.851 Suicidal ideations; F23 Brief psychotic disorder; F17.200 Nicotine dependence, unspecified, uncomplicated
CPT/HCPCS: 36415; 80053; 81001; 81025; 83690; 84443; 85025; 87077; 87086; 99284; A9270; G0426; Q3014; 80306; 80307; 80320; 80329; 81003

== ENCOUNTER 2019-02-07 14:32 | Outpatient (CLI) | payer MEDICARE, MEDICAID | END 2019-02-07 14:33 | disposition EMS.NT | LOC: EMS 14:32 | PROVIDERS: ATTEND Surgery | DX: S61.213A Laceration without foreign body of left middle finger without damage to nail, initial encounter (principal); S61.215A Laceration without foreign body of left ring finger without damage to nail, initial encounter; W25.XXXA Contact with sharp glass, initial encounter ==

== ENCOUNTER 2021-03-31 14:03 | Emergency (ER) | payer OTHER, MEDICARE ==
--- NOTE | 2021-03-31 14:09 | ED Physician Documentation ---
History of Present Illness - Stated complaint Stated Complaint: FIT - Additonal information Additional information: 50-year-old female brought in by [facility] for fit for confinement. She was arrested. Arresting officer denies that it was a violent arrest. However she is quite agitated with long term staff therefore they request that evaluation. Patient is alert and oriented x3. Has no focal neuro deficits. She is yelling and screaming here in the hallway. She endorses cannabis and alcohol use within the last 24 hours. Per the arresting officer she did blow 0.08. She denies any chest pain or shortness of air. 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 - Present Medications Home Medications: Ambulatory Orders Medication Instructions Recorded Confirmed No Known Home Medications 05/11/18 05/11/18 - Allergies Allergies/Adverse Reactions: Allergies Allergy/AdvReac Type Severity Reaction Status Date / Time No Known Drug Allergies Allergy Verified 05/11/18 16:21 - Social History Does the pt smoke?: Yes Smoking Status: Current every day smoker Does the pt drink ETOH?: Yes Does the pt have substance abuse?: Yes - Immunizations Immunizations are current?: No Immunizations: TDAP >10years/unknown - POLST Patient has POLST: No PD ED PE EXPANDED - General General: Alert, Other (Agitated) - Neck Neck: No: Adenopathy - Cardiac Cardiac: Regular Rate, Radial strong equal, Pedal strong equal, Cap refill < 2 sec. No: Murmur Present - Respiratory Respiratory: Clear to ausultation amrita. No: Distress, Labored - Abdomen Abdomen: Normal Bowel sounds. No: Tender to palpation - Neuro Neuro: Alert and Oriented X 3, CNII-XII intact - GCS Eye Opening: Spontaneous Motor: Obeys Commands Verbal: Oriented Total: 15 - Psych Psych: Agitated, Combative Results - Vitals Vitals: Oxygen O2 Source Room air PD MEDICAL DECISION MAKING - ED course Complexity details: re-evaluated patient ED course: 50-year-old female is brought in by [employer]coming special loan officer for evaluation for fitness for confinement. Patient endorses alcohol and cannabis use in the last 24 hours. Per the arresting officer she blew 0.08. She is agitated and combative here in the emergency department. Reassuringly she has unremarkable vital signs. Clear cardiopulmonary auscultation. No focal neuro deficits. Patient will be cleared for confinement. Departure - Departure Disposition: 01 Home, Self Care Clinical Impression: Agitation
[2021-03-31 14:17] VITALS: BP 109/62
== END 2021-03-31 14:57 | disposition home or self-care (01) ==
LOC: ED 14:03
DX: Z02.89 Encounter for other administrative examinations (principal); R45.1 Restlessness and agitation; F17.200 Nicotine dependence, unspecified, uncomplicated
CPT/HCPCS: 99281